=== PATIENT | female | born 1960 | race Hispanic/Latino ===

== ENCOUNTER → 2023-02-27 | Day surgery (SDC) | payer OTHER ==
[~2023-02-27] MED LIST: LACTATED RINGER'S 1,000 ML ONE; LIDOCAINE HCL 2% LOCAL INJ 5 ML SDV VIAL INJ ONE; METOCLOPRAMIDE HCL 10 MG/2ML VIAL ONE; MIDAZOLAM HCL 2 MG/2 ML VIAL ONE; OMEPRAZOLE40 MG PO; PROPOFOL IV EMULSION 10 MG/ML 20 ML VIAL ONE
[2023-02-27 09:36] VITALS: TEMP 97.5
[2023-02-27 10:00] VITALS: BP 123/75; PULSE 83; RESP 18; O2SAT 99
[2023-02-27 12:48] LABS: WBC,FECAL (FECAL LACTOFERRIN) NEGATIVE (NEGATIVE)
== END | disposition home or self-care (01) ==
LOC: OR 06:37
PROVIDERS: ATTEND Internal Medicine Gastroenterology
DX: K29.60 Other gastritis without bleeding (principal); K29.50 Unspecified chronic gastritis without bleeding; K20.90 Esophagitis, unspecified without bleeding; K44.9 Diaphragmatic hernia without obstruction or gangrene; K63.89 Other specified diseases of intestine; K56.609 Unspecified intestinal obstruction, unspecified as to partial versus complete obstruction; K59.00 Constipation, unspecified; Z01.810 Encounter for preprocedural cardiovascular examination; Z85.41 Personal history of malignant neoplasm of cervix uteri; Z92.21 Personal history of antineoplastic chemotherapy; Z92.3 Personal history of irradiation
CPT/HCPCS: 43239; 45380; 83630; 83993; 87045; 87177; 87324; 87328; 87449; 93005; C9113; J2001; J2250; J2704; J2765; J7121; 45378